=== PATIENT | female | born 1950 | race Caucasian/White ===

== ENCOUNTER 2018-08-24 19:19 | Emergency (ER) | END 2018-08-25 02:30 | disposition home or self-care (01) ==

== ENCOUNTER 2018-08-26 20:50 | Emergency (ER) | END 2018-08-27 00:30 | disposition home or self-care (01) ==

== ENCOUNTER 2019-01-14 23:15 | Emergency (ER) | payer SELFPAY ==
[~2019-01-14] VITALS: Ht 162.6 cm; Wt 96.2 kg
[~2019-01-14 23:15] MED LIST: ALBU18HF INHALATION; ASPI-535 PO; HYDR25TA6 PO; IBUP-1542 PO; LOSA50TA14 PO; SIMV40TA2 PO
[2019-01-14 23:39] VITALS: Ht 162.6 cm; Wt 96.2 kg
--- NOTE | 2019-01-15 02:35 | ERD ---
ER Documentation Chief Complaint Chief Complaint left neck pain; hypertension RX benazapril HPI This is a 68-year-old female transferred patient of left-sided intermittent neck pain, that feels like a knot,, as well as hypertension, which checked at home. She requests a refill of her benazepril. She denies any chest pain, back pain, no shortness of breath, she has not a fever, she has not had leg swelling, no orthopnea. She has not had any confusion, denies headache. She has a chronic cough, and requests cough medicine for this. She has not had any syncope. ROS All systems reviewed and are negative except as per history of present illness. Medications Home Meds Active Scripts Albuterol Sulfate* (Ventolin HFA*) 18 Gm Hfa.aer.ad, 2 PUFF INHALATION Q4H, #1 INHALER Prov:JOSE ROMEO MD 08/26/18 Ibuprofen* (Motrin*) 600 Mg Tab, 600 MG PO Q6H PRN for PAIN, #20 TAB Prov:LAVONNE MARLOW MD 08/25/18 Reported Medications Hydrochlorothiazide* (Hydrochlorothiazide*) 25 Mg Tab, 25 MG PO DAILY, #30 TAB 08/25/18 Aspirin Ec (Aspir 81) 81 Mg Tablet.dr, 81 MG PO DAILY, #30 TAB 08/25/18 Simvastatin* (Zocor*) 40 Mg Tablet, 40 MG PO QHS, #30 TAB 08/25/18 Losartan Potassium* (Losartan Potassium*) 50 Mg Tablet, 50 MG PO DAILY, TAB 08/25/18 Allergies Allergies: Coded Allergies: No Known Allergy (Unverified , 08/25/18) PMhx/Soc History of Surgery: No Anesthesia Reaction: No Hx Neurological Disorder: No Hx Respiratory Disorders: No Hx Cardiac Disorders: Yes (htn) Hx Psychiatric Problems: No Hx Miscellaneous Medical Probl: No Hx Alcohol Use: No Hx Substance Use: No Hx Tobacco Use: No Smoking Status: Never smoker Physical Exam Vitals Vital Signs Date Temp Pulse Resp B/P (MAP) Pulse Ox O2 O2 Flow FiO2 Time Delivery Rate 01/15/19 98.0 20 212/137 99 02:30 (162) 01/14/19 98.0 82 20 212/137 99 23:39 (162) Physical Exam Const: Pleasant, well-appearing, nontoxic, no acute distress Head: Atraumatic Eyes: Normal Conjunctiva ENT: Normal External Ears, Nose and Mouth. Neck: Full range of motion. No meningismus. Resp: Clear to auscultation bilaterally, no wheezes rales rhonchi Cardio: Regular rate and rhythm, no murmurs, no JVD Abd: Soft, non tender, non distended. Normal bowel sounds Skin: No petechiae or rashes Back: No midline or flank tenderness Ext: No cyanosis, or edema Neur: Awake and alert, cranial nerves II 12 intact, no cervical Psych: Normal Mood and Affect Result Diagram: 01/15/1921401/15/195 Results 24 hrs Laboratory Tests Test 01/15/19 02:15 White Blood Count 8.0 10^3/ul Red Blood Count 4.53 10^6/ul Hemoglobin 13.0 g/dl Hematocrit 40.5 % Mean Corpuscular Volume 89.4 fl Mean Corpuscular Hemoglobin 28.7 pg Mean Corpuscular Hemoglobin Concent 32.1 g/dl Red Cell Distribution Width 13.0 % Platelet Count 196 10^3/UL Mean Platelet Volume 10.2 fl Immature Granulocytes % 0.500 % Neutrophils % 59.7 % Lymphocytes % 33.0 % Monocytes % 4.9 % Eosinophils % 1.5 % Basophils % 0.4 % Nucleated Red Blood Cells % 0.0 /100WBC Immature Granulocytes # 0.040 10^3/ul Neutrophils # 4.8 10^3/ul Lymphocytes # 2.6 10^3/ul Monocytes # 0.4 10^3/ul Eosinophils # 0.1 10^3/ul Basophils # 0.0 10^3/ul Nucleated Red Blood Cells # 0.0 10^3/ul Sodium Level 141 mmol/L Potassium Level 4.1 mmol/L Chloride Level 103 mmol/L Carbon Dioxide Level 30 mmol/L Anion Gap 8 Blood Urea Nitrogen 15 mg/dl Creatinine 0.49 mg/dl Est Glomerular Filtrat Rate mL/min > 60 mL/min Glucose Level 149 mg/dl Calcium Level 9.8 mg/dl Troponin I < 0.012 ng/ml Procedures/MDM 68-year-old female who presents for evaluation of left-sided neck pain, she had some tenderness noted over her left posterior neck, which appears to be most likely musculoskeletal in nature. She additionally also complains of a cough, incidentally she checked her blood pressure and is in 200, and presents for evaluation for this, the patient had no chest pain, no shortness of breath, no pain with radiation, and arrived in no acute distress. She has had a cough, and requested cough medicine for this, also request did refill on her blood pressure medication, this was provided to her, at discharge the patient was ambulatory, pain-free and in no acute distress. EKG: Rate/Rhythm: Normal Sinus Rhythm QRS, ST, T-waves: No changes consistent w/ acute ischemia Impression: No evidence of ischemia or arrhythmia Departure Diagnosis: Primary Impression: Hypertension Hypertension type: unspecified Qualified Codes: I10 - Essential (primary) hypertension Condition: Stable NINI MARROQUIN MD Jan 15, 2019 02:35
[2019-01-15] MEDS ORDERED: D-ME473S2 PO (03:02)
[2019-01-15] MEDS ORDERED: BENA40TA56 PO (03:02)
[2019-01-15 04:39] VITALS: BP 144/82; PULSE 78; RESP 18
== END 2019-01-15 04:41 | disposition home or self-care (01) ==
LOC: E/R 23:15
DX: I10 Essential (primary) hypertension (principal); Z79.82 Long term (current) use of aspirin
CPT/HCPCS: 71045; 80048; 84484; 85025; 93005